=== PATIENT | male | born 1950 | race Caucasian/White ===

== ENCOUNTER 2017-05-23 18:56 | Emergency (ER) | payer OTHER ==
--- NOTE | 2017-05-23 19:28 | PHYS DOC ---
Past History Past Medical History: CAD, Diabetes, High Cholesterol, Heart Disease, Hypertension Additional Past Medical Histor: her cardiac arrest Additional Past Surgical Histo: 6 stents Smoking: Cigarettes, Less than 1pk/day Alcohol Use: None Drug Use: None Adult General Chief Complaint Chief Complaint: cough and myalgias [facility] This patient is a 66-year-old male with a 48 hour history of nonproductive cough , myalgias that is not improved with [id number] medications of Tylenol. Patient noted yesterday with low-grade fevers and chills he isn't having a difficult time staying warm. He has taken Tylenol and use blowing blankets without much improvement. He does have a slight cough nonproductive nature with no sore throat no runny nose no ear pain ear drainage, no chest pain or shortness of breath patient is worried he might have the flu or a pneumonia. He did visit his brother yesterday who is in a rehabilitation facility where he was exposed to the flu. He denies any swelling in his lower legs, recent change in his medications travel outside the country or recent antibiotics. he is allergic to metformin and statin drugs Review of Systems Review of Systems Constitutional: He has complained of fevers and chills subjectively Eyes: Denies change in visual acuity, redness, or eye pain [] HENT: He has had some nasal congestion without shortness of breath Respiratory: He has a nonproductive cough without shortness of breath Cardiovascular: No additional information not addressed in HPI [] GI: Denies abdominal pain, nausea, vomiting, bloody stools or diarrhea [] : Denies dysuria or hematuria [] Musculoskeletal: Denies back pain or joint pain he complains of general myalgias [] Integument: Denies rash or skin lesions [] Neurologic: Denies headache, focal weakness or sensory changes [] Endocrine: Denies polyuria or polydipsia [] All other systems were reviewed and found to be within normal limits, except as documented in this note. Physical Exam Physical Exam Other vital signs recorded the chart patient noted to be hypertensive which is chronic per patient. Constitutional: Well developed, well nourished, no acute distress, non-toxic appearance. [] HENT: Normocephalic, atraumatic, bilateral external ears normal, oropharynx moist no erythema, no oral exudates, nose normal. No facial tenderness to palpation TMs are clear bilaterally no evidence of maxillary or frontal sinusitis [] Eyes: PERRLA, EOMI, conjunctiva normal, no discharge. [] Neck: Normal range of motion, no tenderness, supple, no stridor. No anterior lymphadenopathy [] Cardiovascular:Heart rate regular rhythm, no murmur [] Lungs & Thorax: Bilateral breath sounds clear to auscultation [] Skin: Warm, dry, no erythema, no rash. [] Extremities: No tenderness, no cyanosis, no clubbing, ROM intact, no edema. [] Neurologic: Alert and oriented X 3, normal motor function, normal sensory function, no focal deficits noted. [] Psychologic: Affect normal, judgement normal, mood normal. [] EKG EKG [] Radiology/Procedures Radiology/Procedures []PA and lateral chest x-ray done in the emergency part humeral read by me demonstrates no hyperinflation, no cardiomegaly, no pleural effusion, no pneumonia there is no pneumothorax there is no evidence of bony fracture. Course & Med Decision Making Course & Med Decision Making Pertinent Labs and Imaging studies reviewed. (See chart for details) []This patient presents myalgias and a nonproductive cough he has been exposed to flu I will screen him for flu and pneumonia. Influenza swab is negative for a and B patient likely has a cold. I will treat him with supportive medications and I'm going home with Tylenol, Motrin and guaifenesin. discharge: I've spoken with the patient and/or caregivers. I've explained the patient's condition, diagnosis and treatment plan based on information available to me at this time. I've answered the patient's and/or caregivers questions and addressed any concerns. The patient and/or caregivers have a good understanding the patient's diagnosis, condition and treatment plan as can be expected at this point. Vital signs have been stabilized. The patient's condition is stable for discharge from the emergency department. The patient will pursue further outpatient evaluation with her primary care provider or other designated consulting physician as outlined in the discharge instructions. Patient and/or caregivers are agreeable to this plan of care and follow-up instructions have been explained in detail. The patient and/or caregivers have received these instructions in written format and expressed understanding of these discharge instructions. The patient and her caregivers are aware that if any significant change in condition or worsening of symptoms should prompt him to immediately return to this of the closest emergency department. If an emergent department is not readily available I would encourage him to call 911. Tahira Disclaimer Tahira Disclaimer This electronic medical record was generated, in whole or in part, using a voice recognition dictation system. Departure Departure: Impression: Primary Impression: Upper respiratory infection Disposition: 01 HOME, SELF-CARE Condition: STABLE Patient Instructions: Upper Respiratory Infection, Adult Additional Instructions: discharge: I've spoken with the patient and/or caregivers. I've explained the patient's condition, diagnosis and treatment plan based on information available to me at this time. I've answered the patient's and/or caregivers questions and addressed any concerns. The patient and/or caregivers have a good understanding the patient's diagnosis, condition and treatment plan as can be expected at this point. Vital signs have been stabilized. The patient's condition is stable for discharge from the emergency department. The patient will pursue further outpatient evaluation with her primary care provider or other designated consulting physician as outlined in the discharge instructions. Patient and/or caregivers are agreeable to this plan of care and follow-up instructions have been explained in detail. The patient and/or caregivers have received these instructions in written format and expressed understanding of these discharge instructions. The patient and her caregivers are aware that if any significant change in condition or worsening of symptoms should prompt him to immediately return to this of the closest emergency department. If an emergent department is not readily available I would encourage him to call 911. Scripts Acetaminophen (TYLENOL) 325 Mg Tablet 1-2 TAB PO QID, #30 TAB 2 Refills Prov: STAN WHIPPLE MD 05/23/17 Benzonatate (TESSALON PERLE) 100 Mg Capsule 1 CAP PO TID, #21 CAP Prov: STAN WHIPPLE MD 05/23/17 Naproxen Sodium (NAPROXEN SODIUM) 275 Mg Tablet 275 MG PO BID for 7 Days, #14 TAB Prov: STAN WHIPPLE MD 05/23/17 Guaifenesin/Dextromethorphan (MUCINEX DM ER 1,200-60 MG TAB) 1 Each Tbmp.12hr 1 TAB PO BID, #20 TAB 1 Refill Prov: STAN WHIPPLE MD 05/23/17 STAN WHIPPLE MD May 23, 2017 19:28
[2017-05-23 19:31] VITALS: BP 120/90
[2017-05-23 20:05] LABS: INFLUENZA A PATIENT NEGATIVE (NEGATIVE); INFLUENZA B PATIENT NEGATIVE (NEGATIVE)
[2017-05-23] MEDS ORDERED: BENZ100C PO (20:20)
[2017-05-23] MEDS ORDERED: GUAI1TBM10 PO (20:20)
[2017-05-23] MEDS ORDERED: ACET325T9 PO (20:20)
[2017-05-23] MEDS ORDERED: NAPR275T59 PO (20:20)
--- NOTE | 2017-05-24 08:00 | RAD ---
Chest, 2 views, 05/23/2017: History: Fever, cough, chills The heart size is normal. There is a coronary artery stent or calcification projected over the heart. The pulmonary vascularity is normal. No pulmonary infiltrates are seen. There is no evidence of pleural fluid. Mild spurring is present in the spine. IMPRESSION: No acute cardiopulmonary abnormality is detected.
== END 2017-05-23 20:23 | disposition home or self-care (01) ==
LOC: ER 18:56
DX: J06.9 Acute upper respiratory infection, unspecified (principal); I25.10 Atherosclerotic heart disease of native coronary artery without angina pectoris; E78.00 Pure hypercholesterolemia, unspecified; I11.9 Hypertensive heart disease without heart failure; E11.9 Type 2 diabetes mellitus without complications; F17.210 Nicotine dependence, cigarettes, uncomplicated; Z95.5 Presence of coronary angioplasty implant and graft
CPT/HCPCS: 71046; 87804; 99285